=== PATIENT | female | born 1945 | race Caucasian/White ===

== ENCOUNTER 2018-12-13 11:14 | Emergency (ER) | payer MEDICARE, OTHER ==
--- NOTE | 2018-12-13 11:44 | ER Document Report ---
ED Medical Screen (RME) - General Chief Complaint: Dizziness Stated Complaint: DIZZINESS Time Seen by Provider: 12/13/18 11:34 Primary Care Provider: KATIE ZAFAR MD [Primary Care Provider] - Follow up as needed Mode of Arrival: Ambulatory Information source: Patient Notes: Patient presents to the emergency department with complaints of dizziness that started this morning. Reports that started while she was sitting down increased when she walked. Reports recent knee surgery December 01. No complaints of chest pain shortness of breath fever vomiting diarrhea. Reports she is eating drinking as normal. She is speaking in clear sentences no shortness of breath noted using walker declined wheelchair. I have greeted and performed a rapid initial assessment of this patient. A comprehensive ED assessment and evaluation of the patient, analysis of test results and completion of the medical decision making process will be conducted by additional ED providers. Dictation of this chart was performed using voice recognition software; therefore, there may be some unintended grammatical errors. TRAVEL OUTSIDE OF THE [place] IN LAST 30 DAYS: No - Related Data Allergies/Adverse Reactions: No Known Allergies Allergy (Verified 12/13/18 11:17) Past Medical History - Past Medical History Cardiac Medical History: Reports: Hx Hypertension Denies: Hx Coronary Artery Disease, Hx Heart Attack Pulmonary Medical History: Denies: Hx Asthma, Hx Bronchitis, Hx COPD, Hx Pneumonia Neurological Medical History: Denies: Hx Cerebrovascular Accident, Hx Seizures Renal/ Medical History: Denies: Hx Peritoneal Dialysis Musculoskeltal Medical History: Reports Hx Arthritis - inflammatory arthritis, osteoarthritis, Reports Hx Fibromyalgia - Immunizations Hx Diphtheria, Pertussis, Tetanus Vaccination: Yes Physical Exam - Vital signs Vitals: Temp Pulse Resp BP Pulse Ox 98.2 F 64 18 147/60 H 97 12/13/18 11:32 12/13/18 11:32 12/13/18 11:32 12/13/18 11:32 12/13/18 11:32 Course - Vital Signs Vital signs: Temp Pulse Resp BP Pulse Ox 98.2 F 64 18 147/60 H 97 12/13/18 11:32 12/13/18 11:32 12/13/18 11:32 12/13/18 11:32 12/13/18 11:32 Doctor's Discharge - Discharge Referrals: KATIE ZAFAR MD [Primary Care Provider] - Follow up as needed
[2018-12-13] MEDS ORDERED: MECLIZINE HCL 25 MG TABLET PO ONE (12:21)
--- NOTE | 2018-12-13 12:33 | RADIOLOGY REPORT (SQ) ---
EXAM DESCRIPTION: CHEST 2 VIEWS COMPLETED DATE/TIME: 12/13/2018 11:57 am REASON FOR STUDY: dizziness, recent surgery COMPARISON: None. EXAM PARAMETERS: NUMBER OF VIEWS: two views TECHNIQUE: Digital Frontal and Lateral radiographic views of the chest acquired. RADIATION DOSE: NA LIMITATIONS: none FINDINGS: LUNGS AND PLEURA: No opacities, masses or pneumothorax. No pleural effusion. MEDIASTINUM AND HILAR STRUCTURES: No masses or contour abnormalities. HEART AND VASCULAR STRUCTURES: Heart normal size. No evidence for failure. 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 HARDWARE: None in the chest. OTHER: No other significant finding. IMPRESSION: No acute abnormality of the lungs. No focal airspace opacity. TECHNICAL DOCUMENTATION: JOB ID: [id number] [employer]- All Rights Reserved Reading location - IP/workstation name: [email or web address]
--- NOTE | 2018-12-13 12:38 | ER Document Report ---
Entered by MAX SORTO SCRIBE 12/13/18 1224 Acting as scribe for:ABBY MAYER MD ED General - General Chief Complaint: Dizziness Stated Complaint: DIZZINESS Time Seen by Provider: 12/13/18 11:34 Primary Care Provider: KATIE ZAFAR MD [NO LOCAL MD] - Follow up as needed Mode of Arrival: Ambulatory Notes: Patient is a 73-year-old female presenting to the emergency department complaining of dizziness. Patient states that she woke up today and felt rather dizzy. Patient states that standing and ambulating exacerbates it. Patient has a history of a right total knee and she states that she has been taking aspirin 81 mg twice a day. Patient states that any rapid head movement also exacerbates it. Patient states that at the moment she does not feel dizzy. TRAVEL OUTSIDE OF THE [place] IN LAST 30 DAYS: No - Related Data Allergies/Adverse Reactions: No Known Allergies Allergy (Verified 12/13/18 11:17) Past Medical History - General Information source: Patient - Social History Smoking Status: Never Smoker Cigarette use (# per day): No Chew tobacco use (# tins/day): No Frequency of alcohol use: None Drug Abuse: None Family History: Reviewed & Not Pertinent Patient has suicidal ideation: No Patient has homicidal ideation: No - Past Medical History Cardiac Medical History: Reports: Hx Hypertension Musculoskeletal Medical History: Reports Hx Arthritis - inflammatory arthritis, osteoarthritis, Reports Hx Fibromyalgia - Immunizations Hx Diphtheria, Pertussis, Tetanus Vaccination: Yes Hx Pneumococcal Vaccination: 03/17/15 Review of Systems - Review of Systems Constitutional: No symptoms reported EENT: No symptoms reported Cardiovascular: See HPI, Dizziness Respiratory: No symptoms reported Gastrointestinal: No symptoms reported Genitourinary: No symptoms reported Female Genitourinary: No symptoms reported Musculoskeletal: No symptoms reported Skin: No symptoms reported Hematologic/Lymphatic: No symptoms reported Neurological/Psychological: No symptoms reported -: Yes All other systems reviewed and negative Physical Exam - Vital signs Vitals: Temp Pulse Resp BP Pulse Ox 98.2 F 64 18 147/60 H 97 12/13/18 11:32 12/13/18 11:32 12/13/18 11:32 12/13/18 11:32 12/13/18 11:32 - Notes Notes: Physical Exam: General: Alert, appears well. HEENT: Normocephalic. Atraumatic. PERRL. Extraocular movements intact. Oropharynx clear. Neck: Supple. Non-tender. Respiratory: No respiratory distress. Clear and equal breath sounds bilaterally. Cardiovascular: Regular rate and rhythm. Abdominal: Normal Inspection. Non-tender. No distension. Normal Bowel Sounds. Back: Non-tender. No deformity or step off. Extremities: Moves all four extremities. Upper extremities: Normal inspection. Normal ROM. Lower extremities: Lateral aspect of the right thigh has ecchymosis. Edema is present above the bandage on the right leg, the bandage extends from above the knee down to the calf. No edema. Normal ROM. Neurological: Normal cognition. AAOx4. Normal speech. Psychological: Normal affect. Normal Mood. Skin: Warm. Dry. Normal color. Course - Re-evaluation Re-evalutation: 12/13/18 14:55 Patient reports after the Antivert she feels better she is able to sit up look about rapidly with no symptoms at all. - Vital Signs Vital signs: Temp Pulse Resp BP Pulse Ox 98.2 F 64 18 147/60 H 97 12/13/18 11:32 12/13/18 11:32 12/13/18 11:32 12/13/18 11:32 12/13/18 11:32 - Laboratory Result Diagrams: 12/13/18 12:36 12/13/18 12:36 Laboratory results interpreted by me: 12/13/18 12/13/18 12/13/18 12:36 12:36 12:56 D-Dimer 2.69 H Carbon Dioxide 33 H BUN 29 H AST 44 H ALT 108 H Total Protein 6.1 L Urine Blood SMALL H Ur Leukocyte Esterase SMALL H - Diagnostic Test Radiology reviewed: Image reviewed, Reports reviewed - Chest x-ray does not show any cardiopulmonary process. - EKG Interpretation by Id EKG shows normal: Sinus rhythm, Zoe, Intervals, QRS Complexes, ST-T Waves Rate: Normal - 65 Rhythm: NSR Discharge - Discharge Clinical Impression: Vertigo Condition: Stable Disposition: HOME, SELF-CARE Additional Instructions: Vertigo You have experienced an episode of vertigo -- a whirling dizziness which may be accompanied by nausea and vomiting or staggering. Vertigo is often caused by an irritation of the inner ear, in which case it is called labyrinthitis. It can also be a symptom of a degenerating inner ear, nerve damage, or brain injury. Your physician has evaluated you to determine whether any further testing is necessary. Vertigo is often treated with dramamine or meclizine. These medications are helpful, but stronger medication may be needed if you are vomiting. Rest in bed. You should not drive or operate machinery until completely better. It may take one to three weeks for recovery. If there are new symptoms, such as decreased hearing or vision, severe headache, weakness or faintness, or confusion, call the physician. Prescriptions: Meclizine HCl [Antivert 25 mg Tablet] 25 mg PO TID PRN #30 tablet PRN Reason: Referrals: KATIE ZAFAR MD [NO LOCAL MD] - Follow up as needed Scribe Attestation: 12/13/18 14:56 I personally performed the services described in the documentation, reviewed and edited the documentation which was dictated to the scribe in my presence, and it accurately records my words and actions. I personally performed the services described in the documentation, reviewed and edited the documentation which was dictated to the scribe in my presence, and it accurately records my words and actions.
[2018-12-13 12:44] LABS: ABSOLUTE EOSINOPHILS # (AUTO) 0.2 10^3/uL (0.0-0.6); ABSOLUTE LYMPHOCYTES (AUTO) 1.2 10^3/uL (0.5-4.7); ABSOLUTE MONOCYTES (AUTO) 0.6 10^3/uL (0.1-1.4); ABSOLUTE NEUT (AUTO) 5.7 10^3/uL (1.7-8.2); BASOPHILS % (AUTO) 0.4 % (0-2); EOSINOPHILS % (AUTO) 2.2 % (0-6); LYMPHOCYTES % (AUTO) 15.9 % (13-45); MEAN CORPUSCULAR HEMOGLOBIN 28.5 pg (27.0-33.4); MEAN CORPUSCULAR HGB CONC 33.2 g/dL (32.0-36.0); MEAN CORPUSCULAR VOLUME 86 fl (80-97); MONOCYTES % (AUTO) 8.3 % (3-13); PLATELET COUNT 194 10^3/uL (150-450); RED CELL DISTRIBUTION WIDTH 12.8 % (11.5-14.0); SEGMENTED NEUTROPHILS % (AUTO) 73.2 % (42-78); TOTAL CELLS COUNTED % (AUTO) 100 %; WHITE BLOOD COUNT 7.8 10^3/uL (4.0-10.5)
[2018-12-13 13:04] LABS: ALANINE AMINOTRANSFERASE 108 U/L (9-52); ALBUMIN 3.6 g/dL (3.5-5.0); ALKALINE PHOSPHATASE 94 U/L (38-126); ANION GAP 5 (5-19); ASPARTATE AMINO TRANSFERASE 44 U/L (14-36); BILIRUBIN,DIRECT 0.3 mg/dL (0.0-0.4); BILIRUBIN,TOTAL 0.6 mg/dL (0.2-1.3); BLOOD UREA NITROGEN 29 mg/dL (7-20); CARBON DIOXIDE 33 mmol/L (22-30); CHLORIDE 103 mmol/L (98-107); GLUCOSE 98 mg/dL (75-110); TOTAL PROTEIN 6.1 g/dL (6.3-8.2)
[2018-12-13 14:20] LABS: APPEARANCE,URINE SLIGHTLY-CLOUDY; BILIRUBIN,URINE NEGATIVE (NEGATIVE); COLOR,URINE YELLOW; GLUCOSE, URINE NEGATIVE (NEGATIVE); KETONES,URINE NEGATIVE (NEGATIVE); LEUKOCYTE ESTERASE,URINE SMALL (NEGATIVE); NITRITE,URINE NEGATIVE (NEGATIVE); PROTEIN,URINE NEGATIVE (NEGATIVE); URINE SPECIFIC GRAVITY 1.025; UROBILINOGEN,URINE NEGATIVE mg/dL (<2.0)
[2018-12-13 15:07] VITALS: BP 146/87
--- NOTE | 2018-12-14 00:16 | EKG REPORT ---
SEVERITY:- NORMAL ECG - SINUS RHYTHM : Confirmed by: Wilmer Lewis 14-Dec-2018 00:15:45
== END 2018-12-13 15:18 | disposition home or self-care (01) ==
LOC: ER 11:14
DX: R42 Dizziness and giddiness (principal); Z79.82 Long term (current) use of aspirin; Z96.651 Presence of right artificial knee joint; I10 Essential (primary) hypertension
CPT/HCPCS: 93005; 99284; 36415; 85025; 80053; 81001; 85379; 71046; 93010; A9270

== ENCOUNTER → 2019-03-17 | Outpatient (CLI) | payer MEDICARE, OTHER ==
--- NOTE | 2019-03-17 14:14 | RADIOLOGY REPORT (SQ) ---
EXAM DESCRIPTION: U/S RETROPERITON (RENAL/AORTA) COMPLETED DATE/TIME: 03/17/2019 11:04 am REASON FOR STUDY: CKD, UNSPEC (N18.9) N18.9 CHRONIC KIDNEY DISEASE, UNSPECIFIED COMPARISON: None. TECHNIQUE: Dynamic and static grayscale images acquired of the kidneys and bladder and recorded on P ACS. Additional selected color Doppler and spectral images recorded. LIMITATIONS: None. FINDINGS: RIGHT KIDNEY: The right kidney measures 9.2 x 3.7 x 5.2 cm. The echogenicity of the kidne y is normal. There is no hydronephrosis, mass or calcification. LEFT KIDNEY: The left kidney measures 9.5 x 4.1 x 4.9 cm. The echogenicity of the kidney is normal. There is no hydronephrosis, mass or calcification. BLADDER: Limited evaluation as the urinary bladder was decompressed. OTHER FINDINGS: No other finding. IMPRESSION: No hydronephrosis. TECHNICAL DOCUMENTATION: JOB ID: [id number] [employer]- All Rights Reserved Reading location - IP/workstation name: [email or web address]
== END ==
LOC: RAD 09:58
PROVIDERS: ATTEND Internal Medicine Nephrology
DX: N18.9 Chronic kidney disease, unspecified (principal)
CPT/HCPCS: 76770

== ENCOUNTER → 2019-05-04 | Outpatient (CLI) | payer MEDICARE, OTHER ==
[2019-05-04 12:30] LABS: APPEARANCE,URINE SLIGHTLY-CLOUDY; BILIRUBIN,URINE NEGATIVE (NEGATIVE); COLOR,URINE YELLOW; GLUCOSE, URINE NEGATIVE (NEGATIVE); KETONES,URINE NEGATIVE (NEGATIVE); LEUKOCYTE ESTERASE,URINE NEGATIVE (NEGATIVE); NITRITE,URINE NEGATIVE (NEGATIVE); PROTEIN,URINE NEGATIVE (NEGATIVE); URINE SPECIFIC GRAVITY 1.027; UROBILINOGEN,URINE NEGATIVE mg/dL (<2.0)
[2019-05-04 12:47] LABS: ANION GAP 5 (5-19); BLOOD UREA NITROGEN 27 mg/dL (7-20); CALCIUM 9.2 mg/dL (8.4-10.2); CARBON DIOXIDE 33 mmol/L (22-30); CHLORIDE 104 mmol/L (98-107); GLUCOSE 95 mg/dL (75-110); POTASSIUM 4.8 mmol/L (3.6-5.0)
[2019-05-05 14:37] LABS: CREATININE URINE 190.7 mg/dL (Not Estab.); MICROALBUMIN URINE 14.5 ug/mL (Not Estab.)
== END ==
LOC: OD 11:35
PROVIDERS: ATTEND Internal Medicine Nephrology
DX: I12.9 Hypertensive chronic kidney disease with stage 1 through stage 4 chronic kidney disease, or unspecified chronic kidney disease (principal); N18.9 Chronic kidney disease, unspecified; K21.9 Gastro-esophageal reflux disease without esophagitis; M19.90 Unspecified osteoarthritis, unspecified site
CPT/HCPCS: 36415; 80048; 81001; 82043; 82570